=== PATIENT | female | born 1980 | race Caucasian/White ===

== ENCOUNTER → 2017-02-06 | Outpatient (REF) | payer OTHER ==
[~2017-02-06] MED LIST: ACET50TA PO; ANUS2.5C2 EXT; DOCU10ELUD PO; IBUP80TA PO; MOM30SS PO; Prenatal Vitamins PO
== END ==
LOC: M LAB REF 17:38
PROVIDERS: ATTEND Advanced Practice Midwife
DX: Z12.4 Encounter for screening for malignant neoplasm of cervix (principal)

== ENCOUNTER → 2018-03-26 | Outpatient (CLI) | payer OTHER | LOC: M SMT 14:03 | DX: O09.521 Supervision of elderly multigravida, first trimester (principal); Z3A.00 Weeks of gestation of pregnancy not specified | CPT/HCPCS: 36415 ==

== ENCOUNTER → 2018-05-10 | Outpatient (REF) | payer OTHER ==
[2018-05-10 19:18] LABS: CHLAMYDIA DNA AMPLIFICATION NEGATIVE (NEGATIVE); GC DNA AMPLIFICATION NEGATIVE (NEGATIVE)
== END ==
LOC: M LAB REF 16:59
DX: O26.21 Pregnancy care for patient with recurrent pregnancy loss, first trimester (principal); Z3A.00 Weeks of gestation of pregnancy not specified

== ENCOUNTER → 2018-09-27 | Outpatient (REF) | payer OTHER | LOC: M LAB REF 17:20 | PROVIDERS: ATTEND Advanced Practice Midwife | DX: O99.89 Other specified diseases and conditions complicating pregnancy, childbirth and the puerperium (principal); Z3A.00 Weeks of gestation of pregnancy not specified ==

== ENCOUNTER 2018-10-18 11:29 | Inpatient (IN) | payer OTHER ==
[2018-10-18] VITALS (8 sets, daily range): BP systolic 114–135; BP diastolic 59–74
[~2018-10-18] VITALS: Ht 170.2 cm; Wt 65.9 kg
[~2018-10-18 11:29] MED LIST changes: -ACET50TA PO; -DOCU10ELUD PO; +DOCU5LIQ PO; +MAPA500T17 PO
[2018-10-18] MEDS ORDERED: IRON27TA2 PO (11:52)
[2018-10-18 12:10] LABS: HEMOGLOBIN 12.3 g/dl (12.0-15.5); MEAN CORPUSCULAR HEMOGLOBIN 31.6 pg (27.0-33.0); MEAN CORPUSCULAR HGB CONC 34.2 g/dl (32.0-36.5); MEAN CORPUSCULAR VOLUME 92.5 fl (80.0-96.0); PLATELET COUNT, AUTOMATED 302 10^3/uL (150-450); RED BLOOD COUNT 3.89 10^6/uL (4.00-5.40); WHITE BLOOD COUNT 19.6 10^3/uL (4.0-10.0)
[2018-10-18] MEDS ORDERED: OXYTOCIN 30 UNITS IN 0.9% NaCl 500ML IV BAG (J2590) As Ordered ONE (12:42)
[2018-10-18] MEDS ORDERED: METHYLERGONOVINE MALEATE 0.2 MG/ML VIAL (J2210) IM ONE (12:45)
[2018-10-18] MEDS ORDERED: OXYTOCIN DRIP 30 UNITS in APPROPRIATE DILUENT 1 EA IV SCH (14:41)
[2018-10-18] MEDS ORDERED: DOCUSATE SODIUM 100 MG CAP PO PRN (14:45)
[2018-10-18] MEDS ORDERED: MEASLES,MUMPS,RUBELLA VACCINE INJ (MMR-II) (90707) SC SCH (14:45)
[2018-10-18] MEDS ORDERED: DIBUCAINE 1% OINTMENT 30GM TOP PRN (14:45)
[2018-10-18] MEDS ORDERED: ACETAMINOPHEN 500 MG TAB PO PRN (14:45)
[2018-10-18] MEDS ORDERED: LIDOCAINE 1% MDV 20ML VIAL SC ONE (14:45)
[2018-10-18] MEDS ORDERED: RHOGAM 300 MCG (1500 IU) INJ (J2790) IM SCH (14:45)
[2018-10-18] MEDS ORDERED: IBUPROFEN 800 MG TAB PO PRN (14:45)
[2018-10-18] MEDS ORDERED: METHYLERGONOVINE MALEATE 0.2 MG TAB PO PRN (14:45)
--- NOTE | 2018-10-18 17:18 | HPE ---
DATE OF ADMISSION: 10/18/2018 HISTORY OF PRESENT ILLNESS: Patient is a 38-year-old female who is a 8, para 4-0-3-4 at 39 weeks, 2 days gestation with an estimated date of delivery (EDITH) of 10/23/2018, and that was based off of her last menstrual period (LMP) and consistent with her first-trimester ultrasound. Patient initiated care in her first trimester with [facility]. Her has been complicated by recurrent spontaneous abortions and a history of hemorrhaging. She was on Crinone cream and a daily aspirin. She presented to labor and delivery with complaints of contractions. She reports active movement. She declines leakage of fluid or vaginal bleeding. Height 67 inches, weight 149 pounds. ALLERGIES: No known drug allergies. CURRENT MEDICATIONS: vitamins and Zantac. LABORATORIES: Blood type is O positive. Urine screen is now growth. Rubella is immune. Syphilis is nonreactive. HIV is negative. Hepatitis C is negative. Gonorrhea and chlamydia are both negative. Hepatitis B is negative. Her 1-hour glucose screening was 101. Her hemoglobin and hematocrit at 28 weeks was 10.2 and 29.7. GBS was negative. Also, patient did the noninvasive screening testing (NIPT) panorama, showing low risk with a female fetus. HISTORY: Her first baby was born February 2003 at 37 weeks, weighing 6 pounds 2 ounces, vaginal delivery with no complications. December 2005 at 39 weeks, a male, weighing 7 pounds 13 ounces. No complications. May 2012, 9 weeks, spontaneous miscarriage, requiring dilatation and curettage. March 2013 at 38 weeks and 3 days, a vaginal delivery of a male, weighing 6 pounds 13 ounces. No complications. June 2015, 7-week miscarriage, requiring a dilatation and curettage (D and C) with a hemorrhage, requiring a blood transfusion. September 2015 at 39 weeks, a male weighing 6 pounds 13 ounces. No complications. July 2017 at 3 weeks, a miscarriage, spontaneous. MEDICAL HISTORY: Chicken pox/Varicella as a child. SURGICAL HISTORY: A loop electrosurgical excision procedure (LEEP) in 2000. D and C times two. FAMILY HISTORY: Hypertension, breast cancer, and heart disease. SOCIAL HISTORY: Patient is . She is a teacher. She is a nonsmoker. She denies using illicit substances. She exercises regularly. She runs multiple miles a day. She has no history of sexually transmitted infections. OBJECTIVE: heart rate 135, moderate variability. Positive accelerations. No decelerations. Contractions are every 2-3 minutes. VAGINAL EXAM: 6 cm, 90% effaced, 0 station with bloody show. Alert and oriented times three. RESPIRATORY: Regular rate and rhythm. No use of accessory muscles. ABDOMEN: Gravid. EXTREMITIES: No edema. No clonus. Reflexes +2. VITAL SIGNS: Temperature 99.0, heart rate 75, respiratory rate 18, blood pressure 115/71. ASSESSMENT: Intrauterine (IUP) at 39.2 weeks gestation, active labor. Negative GBS. Category 1 heart rate tracing. PLAN: Admit to labor and delivery. Saline lock per protocol and labs per protocol. Out of bed ad terry. Clear liquids. Will do third-stage management with delivery of placenta, including intravenous (IV) Pitocin and Methergine intramuscular (IM) injection due to history of hemorrhage. Anticipate cervical change and spontaneous vaginal delivery.
--- NOTE | 2018-10-18 18:16 | DN ---
DATE: 10/18/2018 at 1331 OUTCOME: Spontaneous vaginal delivery. DELIVERY PROVIDER: Carmen Belle CNM, WHNP ANESTHESIA: None. ESTIMATED BLOOD LOSS: 200 mL. FINDINGS: Female, weighing 7 pounds 2 ounces, 3240 grams; scores 9/9; left compound hand; meconium. DELIVERY SUMMARY: Patient is a 38-year-old female who is a G8, now P5-0-3-5 with an estimated date of delivery (EDITH) of 10/23/2018 at 39 weeks and 2 days gestation who presented to labor and delivery in active labor. She progressed to fully dilated at 1318 and pushed to a living female in the low occiput anterior (SOPHIE) position with restitution to low occiput transverse (LOT) at 1331. A left compound hand was noted with delivery. Anterior shoulder delivered with ease, and the corpus immediately followed. The baby was placed skin to skin on the maternal abdomen, active and crying. The cord was clamped times two after 3 minutes and pulsation ceased and cut by the patient's daughter. The placenta delivered spontaneously and intact at 1335. A 3-vessel cord was noted with delivery of the placenta. Uterine hemostasis was achieved via rapid infusion of intravenous (IV) Pitocin and fundal massage. Also a dose of intramuscular (IM) Methergine was given due to patient's history of hemorrhage. Methergine was given into the right thigh. The perineum was inspected and found to have a right labial laceration, which was repaired with a 4.0 Vicryl Rapide RB-1 until hemostasis was achieved. Mother plans to breast-feed baby. They are planning on naming this baby [place]. Both mother and baby are in stable condition. MTDD
[2018-10-19 06:00] VITALS: BP 115/67
[2018-10-19] MEDS ORDERED: IBUP-1114 PO (08:04)
[2018-10-19] MEDS ORDERED: MAPA500T2 PO (08:04)
[2018-10-19] MEDS ORDERED: PRENATAL VITAMINS CHEWABLE TABLET PO SCH (09:00)
== END 2018-10-19 15:50 | disposition home or self-care (01) | DRG 807 ==
LOC: M LDO 11:29 → M LDI 11:38 → M OBS 15:39
PROVIDERS: ADMIT Advanced Practice Midwife; ATTEND Advanced Practice Midwife
PROC: 10E0XZZ Delivery of Products of Conception, External Approach (ICD-10-PCS; principal; 2018-10-18)
DX: O32.6XX0 Maternal care for compound presentation, not applicable or unspecified (principal); Z37.0 Single live birth; Z3A.39 39 weeks gestation of pregnancy; O77.0 Labor and delivery complicated by meconium in amniotic fluid

== ENCOUNTER → 2019-06-27 | Outpatient (REF) | payer OTHER ==
[~2019-06-27] MED LIST changes: +IBUP-1114 PO; +IRON27TA2 PO; +MAPA500T2 PO
== END ==
LOC: M SFHCWAGY 18:50
PROVIDERS: ATTEND Advanced Practice Midwife
DX: Z01.419 Encounter for gynecological examination (general) (routine) without abnormal findings (principal)
CPT/HCPCS: 87624; G0123

== ENCOUNTER → 2021-05-16 | Outpatient (REF) | payer OTHER | LOC: M SFHCWAGY 13:18 | PROVIDERS: ATTEND Advanced Practice Midwife | DX: Z01.419 Encounter for gynecological examination (general) (routine) without abnormal findings (principal) | CPT/HCPCS: 87624; G0123 ==

== ENCOUNTER → 2021-05-30 | Outpatient (CLI) | payer OTHER ==
--- NOTE | 2021-05-30 14:58 | REPMRS ---
Patient History The patient states she had a clinical breast exam in May 2021. Family history of breast cancer at age 54 in mother. Took hormonal contraceptives for 4 years. Pt denied . Patient states no breast complaints today. Patient has signed MRS History Sheet. Digital Woman Screen Mammo: May 30, 2021 - Exam #: [id number] Bilateral CC and MLO view(s) were taken. Technologist: Yoli Noland RT FINDINGS: The breast tissue is extremely dense which could obscure a lesion on mammography. Screening. Digital screening (2D) mammography was performed bilaterally in the CC and MLO projections. Additionally, breast tomosynthesis (3D mammography) was performed bilaterally in the CC and MLO projections. Todays exam was compared to the prior exam/exams. By history, the patient has no complaints of a palpable breast abnormality or other significant breast complaints. The Volpara volumetric breast density category is D, the breasts are extremely dense which lowers the sensitivity of mammography. The breasts are unchanged in size and shape. There are no tonya-soft tissue densities or spiculated masses. There is no internal architectural distortion. There are no suspicious tonya-calcific clusters. Skin thickening or nipple retraction is not present. IMPRESSION: BI-RADS Category 2- Benign Findings. There is no evidence of malignant alteration of the breasts. Followup examination recommended in one year. The lifetime Tyrer-Cuzick score is 19.9% This mammogram was read with the assistance of [employer],an FDA approved computer aided detection system for mammography. Due to the density of the breasts, MRI/whole breast screening ultrasound is warranted. Negative x-ray reports should not delay surgical consultation if a dominant or clinically suspicious mass is present. Not all breast cancers can be identified by mammography. Therefore, we recommend that you continue to perform regular breast self-examination and physical examination and then promptly contact your physician of any concerns or changes. Adenosis and dense breasts may obscure an underlying neoplasm. Assessment: BI-RADS/ACR category 2 mammogram. Benign Findings. Recommendation Routine screening mammogram of both breasts in 1 year. Electronically Signed By: Angelito Daniels MD 05/30/21 [id number]
== END ==
LOC: M WHC 10:53
PROVIDERS: ATTEND Advanced Practice Midwife
DX: Z12.31 Encounter for screening mammogram for malignant neoplasm of breast (principal); Z80.3 Family history of malignant neoplasm of breast

== ENCOUNTER → 2022-12-28 | Outpatient (CLI) | payer OTHER | LOC: M WHC 11:03 | DX: Z12.31 Encounter for screening mammogram for malignant neoplasm of breast (principal) ==